=== PATIENT | male | born 1965 | race Caucasian/White ===

== ENCOUNTER 2023-12-21 05:15 | Emergency (ER) | payer BC, SELFPAY ==
[2023-12-21 05:21] VITALS: BP 162/89; PULSE 76; RESP 18; TEMP 36.7; O2SAT 99; BMI 26.5
[2023-12-21] MEDS: BENZOCAINE 20 % SPRAY 2 EACH NOSTRIL-B (06:08)
[2023-12-21] MEDS: SILVER NITRATE APPLICATOR 1 EACH STICK..EA. 3 EACH TOPICAL (06:10)
--- NOTE | 2023-12-21 06:18 | ED.GENADULT ---
HPI - General Adult General Chief complaint: Epistaxis/Nosebleed Stated complaint: Bloody nose Time Seen by Provider: 12/21/23 05:16 Source: patient and family Mode of arrival: ambulatory Limitations: no limitations History of Present Illness HPI narrative: 58-year-old male presents the emergency department with recurrent nosebleed over the past week. For nose bleeds in the last few days. Seem to have started from the right nostril today. But was also getting flow out of the left nostril. No severe heavy blood clots but does have persistent bleeding. Did not try clamping. Does not use any anticoagulants, no nasal trauma. No prior history of nasal surgery. No fevers or recent illness. No prior history of nasal cautery. Did not try any other interventions prior to coming to ED. no history of hypertension or cardiac disease. States that he tends to get nose bleeds at the end of the winter season, suspect that is from the dry air and furnace. Has not used nasal saline gel or other similar product in the past. They were traveling to [place] tomorrow and he is worried about getting another nosebleed. He has had nose bleeds from each nostril at least twice over the past week. Past medical history benign per his report. No major long-term health problems. No allergies. Nonsmoker. ROS notable for the nasal symptoms as above only, otherwise negative for other HEENT, generalized, respiratory, GI or hematological complaints. Related Data Home Medications Medication Instructions Recorded Confirmed No Known Home Medications 07/07/23 12/21/23 Allergies Allergy/AdvReac Type Severity Reaction Status Date / Time No Known Drug Allergies Allergy Verified 12/21/23 05:23 [facility] Medical History No significant past medical history Surgical History No significant past surgical history Social History Smoking Status: Never smoker Second hand tobacco smoke exposure: No How often do you have a drink containing alcohol: never AUDIT-C Alcohol total score: 0 Non-prescribed substance use: denies use Exam Const: Vital Signs, click to edit/add: Vital Signs - 24 hr 12/21/23 05:21 Temperature 98.1 F Pulse Rate [Right Pulse Oximeter] 76 Respiratory Rate 18 Blood Pressure [Ri ght Upper Arm] 162/89 H Pulse Oximetry 99 Oxygen Delivery Me thod Room Air Documenting provider has reviewed patient's vital signs: yes Other: Very anxious but redirectable. Good historian. HENMT: Common normals: normocephalic and head/scalp atraumatic Head and scalp: normocephalic and atraumatic Other: Nose with oozing from the right nostril, dry blood in left nostril. Oropharynx with acyanotic lips, moist membranes. Minimal streaking blood down the back of the throat, no clots. Nose is blown, then re-examine. Small bleed at the anterior plexus on the right nostril. Eye: Common normals: conjunctivae normal General eye: normal appearance of both eyes Conjunctiva: conjunctiva(e) normal Neck & C-Spine: General: normal visual inspection Resp: Common normals: normal respiratory effort, no use of accessory muscles and clear to auscultation bilaterally Effort & inspection: able to speak in complete sentences Auscultation: clear to auscultation bilaterally Cardio: Common normals: regular rate, regular rhythm, S1 normal heart sound, S2 normal heart sound and no murmurs Rate: regular rate Rhythm: regular rhythm Heart sounds: S1 normal and S2 normal Psych: Activity/motor behavior: appropriate eye contact Mood and affect: anxious Insight: insight good Judgement: judgment good Skin: Common normals: no rashes or lesions noted Narrative: No petechiae or areas of easy bruising. General skin exam: no rashes or lesions noted Course Course ED Course: Anterior plexus bleed, mild persistent bleeding a concern that he is traveling out of town. He really isn't going to tolerate a nasal rocket and cannot follow-up with ENT. We discussed his options and he requests nasal cautery. I think is a good candidate for this as it is a rather focal area of bleeding. Risks and benefits were discussed including risk of ulceration, he agrees to proceed. Procedure: Nasal cautery. Verbal consent obtained, benzocaine spray inserted into right nostril. Area of bleeding quickly and easily identified, cauterized with 1 silver nitrate stick, a very small 3-4 mm round area with excellent hemostasis. Clamp reapplied. After 5 minutes, exam in the opposite left side. There is not active bleeding but there is 1 very tiny prominent vessel. It does not anatomically line up with the opposite side of cautery. He is worried about getting another nosebleed from that side on his trip. I spent some additional time re-examining the right side and the left and stated that we could certainly could try to cauterize that very small vessel but I could not do has been given area due to the risk of ulceration. He thinks the proceeding would be best and I think that this is reasonable. Benzocaine was applied to the left nostril and a 1-2 mm area just over that pinpoint vessel higher on the nasal septum was applied. He tolerated this fairly well. Nasal clamp reapplied. Reinspected 10 minutes later with good maturation of cauterized area on right, pinpoint on the left but holding well and covering the intended vessel area. Patient counseled extensively on not blowing his nose for the next few days. He is provided with a nasal clamp and an additional 1 given to his to take on their trip. Instructed on caring nasal cease, [id number] nasal cautery product. Instructions on applying the clamp for at least 10 minutes, warning signs that would warrant emergent medical care. Counseled the may have some black tarry stools and or nausea or loose stools from swallowed blood. This would not warrant further workup unless it is severe in the next 24 hours. Tylenol is okay to take for the next 24 hours for his nose bleed but would prefer that he stay away from ibuprofen until tomorrow. Avoid nasal steroid sprays. Okay to use Afrin. Expect watery and or grayish black discharge. He verbalizes understanding and agreement. Vital Signs Vital signs: Initial Vital Signs Temperature 98.1 F 12/21/23 05:21 Temperature Source Temporal Artery Scan 12/21/23 05:21 Pulse Rate 76 12/21/23 05:21 Respiratory Rate 18 12/21/23 05:21 Blood Pressure 162/89 H 12/21/23 05:21 Blood Pressure Mean 113 H 12/21/23 05:21 Blood Pressure Position Sitting 12/21/23 05:21 Pulse Oximetry 99 12/21/23 05:21 Oxygen Delivery Method Room Air 12/21/23 05:21 Vital Signs Temperature 98.1 F 12/21/23 05:21 Pulse Rate 76 12/21/23 05:21 Respiratory Rate 18 12/21/23 05:21 Blood Pressure 162/89 H 12/21/23 05:21 Pulse Oximetry 99 12/21/23 05:21 Oxygen Delivery Method Room Air 12/21/23 05:21 Temperature 98.1 F 12/21/23 05:21 Pulse Rate 76 12/21/23 05:21 Respiratory Rate 18 12/21/23 05:21 Blood Pressure 162/89 H 12/21/23 05:21 Pulse Oximetry 99 12/21/23 05:21 Oxygen Delivery Method Room Air 12/21/23 05:21 Medications Administered Medications: Generic Name Dose Route Start Last Admin Trade Name Freq PRN Reason Stop Dose Admin Benzocaine 2 each 12/21/23 06:17 12/21/23 06:08 Benzocaine 20 % [place] NOSTRIL-B 12/21/23 06:18 2 each ONCE ONE Administration Silver Nitrate/Potassium Nitrate 3 each 12/21/23 06:17 12/21/23 06:10 Silver Nitrate Applicator 1 Each Stick..Ea. TOPICAL 12/21/23 06:18 3 each ONCE ONE Administration Discharge Plan Discharge Clinical Impression: History of nasal cauterization, Epistaxis Patient Disposition: Home w/ Parent or Adult Condition: Improved Instructions: Nosebleed (ED) Additional Instructions: I am thankful that we were able to cauterize the spot along your nasal septum that has been bleeding. This markedly reduces the chance that it will bleed again during your trip. As we discussed, no aggressively wiping your nose for the next 12 hours. Gentle dabbing only. No aggressively blowing your nose for the next 3 days. After 12 hours, you may apply nasal saline gel to the outside of the nostril and gently press the nares together to help spread the lubricant. I am supposed to tell you not to use Vaseline. Expect a lot of watering discharge from the nose, eyes and even down the back of the throat. There is a 10% chance that the nose will rebleed. If this occurs, 1st apply the nasal clamp that you were given. Take this with you on your trip. There is an [id number] product called nasal cease. I would like for you to try to find some and take this with you also. Watch the instructional videos online through the [employer] website on details of how to use. A quick search told me that they carried this at [facility] here in [place]. Should your nose bleed restart, apply the nasal ceased and clamp and leave the clamp on for at least 20 minutes. Only then should do check and try to remove the clamp to make sure the bleeding has stopped. If you have large blood clots coming down the back of your throat even with the clamp on, you should go to an emergency room right away or call 911 if you do not have assistance. It is reasonable for you to go on your trip. Activity Level: Activity as Tolerated Discharge Diet: Regular Prescriptions: No Action No Known Home Medications Follow Up/Referrals: Provider,Not a Local [Primary Care Provider] - Stand Alone Forms: [employer] Info Instructions
[2023-12-21 06:47] VITALS: BP 154/84; PULSE 74; RESP 18; TEMP 36.7; O2SAT 99
== END 2023-12-21 06:48 | disposition home or self-care (01) ==
PROVIDERS: Emergency Provider Family Medicine
DX: R04.0 Epistaxis (principal)
CPT/HCPCS: 30901; 99283; A9270

== ENCOUNTER 2023-12-21 19:12 | Emergency (ER) | payer BC, SELFPAY ==
[2023-12-21 19:27] VITALS: BP 169/105; PULSE 72; RESP 18; TEMP 36.7; O2SAT 96; BMI 26.5
--- NOTE | 2023-12-21 19:39 | ED.EPISTAXIS ---
History of Present Illness General Time Seen by Provider: 19:39 Date Seen: 12/21/23 Chief Complaint: Epistaxis/Nosebleed Stated Complaint: Nose bleed Time Seen by Provider: 12/21/23 19:31 Source: patient, RN notes reviewed and old records reviewed Mode of arrival: ambulatory Limitations: no limitations History of Present Illness HPI Narrative: This 58-year-old male returns with right nose bleed after cauterization earlier this morning. I have reviewed Dr. Sierra's note. He had placed a packing that he had purchased [id number], has it in place, feels that the bleeding has stopped. He has had no trauma, is on no anticoagulants. They are leaving for [place] in the morning. Location: Yes right nares Related Data Home Medications Medication Instructions Recorded Confirmed No Known Home Medications 07/07/23 12/21/23 Allergies Allergy/AdvReac Type Severity Reaction Status Date / Time No Known Drug Allergies Allergy Verified 12/21/23 05:23 Review of Systems Narrative: As per HPI. PFSH PFS Medical History No significant past medical history Surgical History No significant past surgical history Social History Smoking Status: Never smoker Second hand tobacco smoke exposure: No How often do you have a drink containing alcohol: never AUDIT-C Alcohol total score: 0 Non-prescribed substance use: denies use Exam Const: Vital Signs, click to edit/add: Vital Signs - 24 hr 12/21/23 19:27 Temperature 98.0 F Pulse Rate [Pulse Oximeter] 72 Respiratory Rate 18 Blood Pressure [Ri ght Upper Arm] 169/105 H Pulse Oximetry 96 Oxygen Delivery Me thod Room Air Patient is a 58-year-old male that has a packing in his right anterior nares, can see it is blood soaked. He has no active bleeding at this time. This packing was removed. Has a small little area on the right anterior septum where you can see slight oozing. We did recall arise 2 small sites along that right anterior septum using silver nitrate. He had good hemostasis observed afterwards. I did trim down a Merocel in place that anteriorly along the septum, taped this in place. Documenting provider has reviewed patient's vital signs: yes Course Course ED Course: We discussed that many nose bleeds will require sometimes 3 cauterizations prior to achieving hemostasis. We discussed things that he can do himself in [place] if it does rebleed. Vital Signs Vital signs: Initial Vital Signs Temperature 98.0 F 12/21/23 19:27 Temperature Source Temporal Artery Scan 12/21/23 19:27 Pulse Rate 72 12/21/23 19:27 Respiratory Rate 18 12/21/23 19:27 Blood Pressure 169/105 H 12/21/23 19:27 Blood Pressure Mean 126 H 12/21/23 19:27 Pulse Oximetry 96 12/21/23 19:27 Oxygen Delivery Method Room Air 12/21/23 19:27 Vital Signs Temperature 98.0 F 12/21/23 19:27 Pulse Rate 72 12/21/23 19:27 Respiratory Rate 18 12/21/23 19:27 Blood Pressure 169/105 H 12/21/23 19:27 Pulse Oximetry 96 12/21/23 19:27 Oxygen Delivery Method Room Air 12/21/23 19:27 Temperature 98.0 F 12/21/23 19:27 Pulse Rate 72 12/21/23 19:27 Respiratory Rate 18 12/21/23 19:27 Blood Pressure 169/105 H 12/21/23 19:27 Pulse Oximetry 96 12/21/23 19:27 Oxygen Delivery Method Room Air 12/21/23 19:27 Discharge Plan Discharge Clinical Impression: Epistaxis Patient Disposition: Home, Self-Care Condition: Stable Instructions: Nosebleed (ED) Additional Instructions: Leave the current packing in place at least until you get to [place]. Would recommend not removing packing until it is daytime hours in [place] in case you need to seek medical evaluation. You certainly can try a cotton ball with a couple sprays of Afrin and using the nose clamp if you do bleed again. Need the compression for 30 minutes solid. Adjust the nose clamp so you feel you are getting hemostasis of the area that is bleeding. Once the packing is removed, a gentle application of a small bead of Vaseline along each side of the nasal septum twice a day will help with hydrating this. Be very gentle when putting the Vaseline on. Activity Level: Activity as Tolerated Prescriptions: No Action No Known Home Medications Follow Up/Referrals: Provider,Not a Local [Primary Care Provider] - Stand Alone Forms: [employer] Info Instructions
== END 2023-12-21 20:58 | disposition home or self-care (01) ==
LOC: ED 20:56
PROVIDERS: Emergency Provider Family Medicine
DX: R04.0 Epistaxis (principal)
CPT/HCPCS: 99283